=== PATIENT | female | born 1970 | race Caucasian/White ===

== ENCOUNTER 2018-11-29 23:58 | Inpatient (IN) | payer OTHER ==
[~2018-11-29] VITALS: Ht 157.5 cm; Wt 54.5 kg
[2018-11-30 01:36] VITALS: BP 133/77
[2018-11-30] MEDS ORDERED: oxyCODONE/APAP 5/325 1 TAB TABLET PO PRN (02:30)
--- NOTE | 2018-11-30 02:42 | NUR ---
Patient transfer from [facility], arrived on unit at 0130. VS stable, assessment complete, call light with in reach. Orders received. Will continue to monitor pt.
[2018-11-30 03:45] VITALS: BP 116/69
[2018-11-30 04:45] LABS: PROTHROMBIN TIME PATIENT 12.8 SEC (11.7-14.0)
[2018-11-30 05:13] LABS: ALBUMIN/GLOBULIN RATIO 0.9 (1.0-1.7); CALCIUM 8.5 mg/dL (8.5-10.1); CREATININE 0.5 mg/dL (0.6-1.0); GFR 131.1; POTASSIUM 3.6 mmol/L (3.5-5.1); TOTAL BILIRUBIN 0.6 mg/dL (0.2-1.0); TOTAL PROTEIN 6.3 g/dL (6.4-8.2)
[2018-11-30 07:16] VITALS: BP 123/69
--- NOTE | 2018-11-30 09:29 | RAD ---
Neck for soft tissues, 2 views, 11/30/2017: HISTORY: Left-sided neck mass Surgical clips are present in the neck on the left compatible with the history of previous carotid surgery. No prevertebral soft tissue swelling is seen. The epiglottis is unremarkable. Cartilaginous calcifications are present in the laryngeal region. No significant airway narrowing is seen. IMPRESSION: 1. Postsurgical change on the left. 2. No acute abnormality is detected. Electronically signed by: Diony Mark MD (11/30/2018 9:26 AM) [facility]
--- NOTE | 2018-11-30 09:44 | NUR ---
SS following for discharge planning. SS reviewed pt chart. Pt is from home with spouse and is currently on room air. No discharge needs noted at this time. SS will continue to follow for discharge planning.
[2018-11-30] MEDS ORDERED: GADOBUTROL 7.5 MMOL/7.5 ML VIAL IV ONE (09:45)
[2018-11-30 10:46] VITALS: BP 111/71
--- NOTE | 2018-11-30 11:03 | RAD ---
MRI neck with and without contrast November 30, 2018 INDICATION: Left neck mass. COMPARISON: CT neck soft tissues November 29, 2018 TECHNIQUE: Multiplanar, multisequence MR imaging of the neck was performed before and after the administration of 5 mL gadolinium based contrast. FINDINGS: There is a T1 hypointense, T2 mixed hyper and hypointense transspatial mass involving the left neck. The mass involves the left suprazygomatic technology development intern space, left parotid space, left external auditory canal posterior auricular region. There are numerous vessels coursing through the mass with more increased vascularity along the inferior aspect of the mass. The left common carotid artery is normal in course and caliber. There is venous ectasia at the left skull base with soft tissue mass resulting in mass effect on the carotid space. There suggestion of involvement of the left nasopharynx. There is diffuse enhancement within the mass. Visualized orbits are normal. Paranasal sinuses are well aerated. There is mass effect on the left parapharyngeal fat is no mass. There is no definite intraosseous involvement. No extension to the visualized brain parenchyma. Cervical spine is normal in appearance. Oropharynx, hypopharynx and laryngeal structures are intact. No pathologically enlarged cervical lymphadenopathy is identified. IMPRESSION: Left neck trauma space a mass is identified, as described in detail above. It is difficult to distinctly assess the margins of the mass is extending to involve the left external auditory canal as well as the left nasopharynx. Primary differential considerations would include neurofibroma versus hemangioma. There may be postsurgical changes involving the left external auditory canal with associated edema and scarring. Correlate with surgical history. Electronically signed by: Melissa Farah MD (11/30/2018 11:00 AM) [id number]
--- NOTE | 2018-11-30 13:11 | PDOC ---
Provider Note Provider Note Vascular Consult dictated Pt. well known to Dr. Boateng Lt neck mass with MRI showing considerable vascularity Pt. states mass varies in siz, larger last night after a shower, smaller today.no pain or trouble swallowing or breathing Exam Soft mass under prior incision Plan: OK to discharge, pt. to see Dr. Boateng in ~ 2 weeks in office MEREDITH DIAS MD Nov 30, 2018 13:11
--- NOTE | 2018-11-30 14:00 | HP ---
ADMIT DATE: 11/30/2018 HISTORY OF PRESENT ILLNESS: The patient is a 48-year-old female patient who apparently presented to [facility] Emergency Room with a complaint of a mass that developed yesterday and that started on the left side of her neck at work, but got larger after work and after shower, it seemed to get better, but it is on the same side that she had ear surgery and carotid aneurysm repair. The mass was at the left angle of the mandible and carotid area. The size approximately 8 x 8 cm, left carotid pulse is easily felt below the mass, not felt in the mass itself. There is no tenderness. She has two surgeries done at [facility] in 04/17/2010 and 08/08/2010 at [facility], and the patient basically denied any fall or trauma. The patient is known to have neurofibromatosis. PAST MEDICAL HISTORY: Significant for neurofibromatosis and bilateral sensorineural deafness. Denied any other medical problems, in particular denied any hypertension. PAST SURGICAL HISTORY: Significant for left carotid endarterectomy, appendectomy and left ear implantation done twice last year at [facility] in [place]. ALLERGIES: SHE IS ALLERGIC TO PENICILLIN AND TOBRAMYCIN. MEDICATIONS: She is currently on no medication. FAMILY HISTORY: She has no full brother or sister. Her father at age of 45-46 due to motor vehicle accident. SOCIAL HISTORY: She is , has 1 daughter. She never smoked. Drinks alcohol occasionally. She teaches in preschool. REVIEW OF SYSTEMS: The patient denied any blurring of vision, cataract, glaucoma or macular degeneration. Denied any earache. She has bilateral sensorineural deafness, more on the right than left. Denied any nosebleeds, stuffy nose or postnasal drip. Denied any sore throat, sore tongue, toothache, hoarseness of voice or difficulty swallowing. Denied any nausea, vomiting, diarrhea or constipation. Denied any hematemesis, melena or hematochezia. Denied any dysuria, frequency or hematuria. Denied any dysuria, frequency, hematuria. Denied any chest pain, shortness of breath, orthopnea or paroxysmal nocturnal dyspnea. Denied any cough, phlegm or hemoptysis. Denied any dizziness, lightheadedness or vertigo. Denied any lateralizing sign. In particular, denied any tingling, numbness or weakness in the right side. Denied any problem with swallowing. She is able to communicate without any difficulty. She was evaluated at [facility] Emergency Room. PHYSICAL EXAMINATION: VITAL SIGNS: On arrival there, her heart rate was 91, blood pressure was 133/77, temperature was 98.3, respiratory rate was 19 and oxygen saturation was 99% on room air. LABORATORY DATA: She had an EKG, which showed that she was in sinus rhythm at 77 beats per minute with no evidence of ST segment elevation or depression. She apparently has had lab work there, which showed that her white cell count was 8800, hemoglobin 14, hematocrit 41, MCV 88 and platelet count of 192,000, with normal manual differential. Her prothrombin time was 9.9, INR of 1, aPTT was 25. D-dimer was 0.28. Her serum sodium was 132, potassium 4, chloride 99, bicarbonate 27, anion gap of 6, BUN was 11, creatinine 0.6. Total protein was 6.6, albumin 3.5, calcium was 9.2. Her total bilirubin, AST, ALT, alkaline phosphatase were all normal. 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 The common carotid artery is widely patent throughout the bilateral. External carotid arteries are widely patent. The extracranial right internal carotid artery is also patent, normal in caliber throughout. 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 The bilateral intracranial internal carotid arteries are widely patent, although the left cavernous and clinoid segment of the left internal carotid artery mild aneurysmal measuring up to 5 mm proximally, measuring approximately 2.5 mm. The anterior cerebral arteries are well visualized and without evidence of stenosis or occlusion. The middle cerebral arteries are well visualized and without evidence of stenosis or occlusion. The posterior cerebral arteries are well visualized and without evidence of stenosis or occlusion. The vertebrobasilar system is normal with no evidence stenosis or occlusion. Postsurgical changes are seen within the left temporal region with associated deformity of the left mastoid air cells and left auditory canal immediately overlying this post-surgical changes, extending inferiorly in the region. Diffuse soft tissue thickening measuring approximately 7.2 x 3.9 x 2.5 cm, associated internal vascularity is seen, margin. Vascular malformation is not excluded, alternative other soft tissue masses, postsurgical changes, similar appearance of note. Compared to prior CT head, this is more prominent. The prominent previously seen soft tissue enhancement in the subcutaneous left frontoparietal lesion is not definitely seen on today's examination. 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 She has large soft tissue prominence overlying the left head and neck with some prominent internal visits, possibly vascular malformation, although post-surgical changes or other soft tissue mass may have similar appearance. Recommend comparison to additional prior imaging if available to assess stability. The patient was transferred to [facility]. We will consult the vascular surgeon to assist with management of this patient. She seems to be so far stable and with no evidence of any neurological deficit. SVETLANA CURTIS MD DR: FIONA/chloe JOB#: [id number] / [id number]
[2018-11-30 14:42] VITALS: BP 107/44
--- NOTE | 2018-11-30 16:00 | NUR ---
Pt discharged home with self care and instructions to follow up with in 2 weeks per Bijal Gordilol. Pt walked out with and staff member.
--- NOTE | 2018-11-30 22:29 | DS ---
DATE OF DISCHARGE: 11/30/2018 HISTORY OF PRESENT ILLNESS: The patient is a 48-year-old female patient who came to the Emergency Room of [facility] with a complaint of a mass that developed yesterday that started in the left side of her neck at work, but it got larger after the work and after the shower, it seemed to get better, but is on the same side that she has had her ear surgery and carotid aneurysm repair. The mass was at the left angle of the mandible and carotid area. There is no tenderness and no obvious discoloration. The patient has had her ear surgery at [facility] last year and has had her carotid aneurysm rupture in 2004 treated surgically. The patient denied any complaint, in particular denied any blurring of vision, weakness, tingling or numbness or difficulty swallowing. She has had x-ray of the soft tissue of the neck, which basically showed that there are surgical clips present in the neck on the left compatible with a history of previous carotid surgery. No prevertebral soft tissue swelling is seen. The epiglottis was unremarkable. Cartilaginous calcification is present in the laryngeal area and significant airway narrowing is seen. 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 There are numerous vessels coursing through the mass with more increased vascularity along the inferior aspect of the mass. The left common carotid artery is normal in course and caliber. There is venous ectasia of the left skull base with soft tissue mass resulting in mass effect on the carotid space. There is suggestion of involvement of the left nasopharynx. There is diffuse enhancement within the mass; however, the visualized orbits are normal. Paranasal sinuses are well aerated. There is mass effect on the left parapharyngeal fat. There is no definite intraosseous involvement. No extension to the visualized brain parenchyma. Cervical spine is normal in appearance. Oropharynx, hypopharynx and laryngeal structures are intact. No pathologically enlarged cervical lymph nodes are identified and basically, the patient has left neck mass identified as described in detail, difficult to distinctly assess the margins of the mass and was extending to the left external auditory canal as well as the left nasopharynx. Primary differential consideration would include neurofibroma versus hemangioma. There may be postsurgical changes involving the left external auditory canal with associated edema and scarring. The patient was seen by the vascular surgeon and apparently, she is well known to Dr. Boateng and a decision was made to discharge her home to follow with Dr. Boateng in 2 weeks' time in his office. On discharging her, all her vital signs were stable. PHYSICAL EXAMINATION: Unremarkable except for the mass on the left side of her neck. FINAL DISCHARGE DIAGNOSIS: Mass with numerous vessel coursing through the mass with more increased vascularity along the inferior aspect of the mass. SVETLANA CURTIS MD DR: FIONA/chloe JOB#: [id number] / [id number]
--- NOTE | 2018-12-01 12:30 | CONS ---
DATE OF CONSULTATION: 11/30/2018 REQUESTING PHYSICIAN: Dr. Villa. REASON FOR CONSULTATION: Left neck mass. HISTORY OF PRESENT ILLNESS: This is a 48-year-old female well known to Dr. Boateng in our practice. 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 She also has known underlying neurofibromatosis. Because of an abnormality in the left ear, Dr. Boateng sent her to Plastic Surgery at the [facility] where that was corrected. Dr. Boateng last saw her in the office in September recently. She complains of this left neck mass, which varies in size. She thinks it gets larger after a hot shower and noted it to be very large last night, which is why she was admitted; however, this morning it is much smaller. She has no history of pain with this, has no trouble swallowing or breathing. A CT scan was done of the left neck and suggest some hypervascularity with numerous vessels coursing through the mass. The carotid artery was normal. There was also some venous ectasia. PHYSICAL EXAMINATION: GENERAL: She is a pleasant female, in no severe distress. NECK: The mass is soft. No tenderness. It is under her well-healed previous neck incision. She has got strong radial pulses bilaterally. CARDIOVASCULAR: Regular heart rate. LUNGS: Nonlabored respirations. 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 PLAN: The mass does not appear to be critical or of any emergence at the present time. She does have an appointment to see Dr. Boateng again in a couple of weeks. I do not think the mass is of severe enough nature to justify any type of surgery at the present time. Thanks for allowing us to see her. Dr. Boateng will follow up in a couple of weeks. MEREDITH DIAS MD DR: SHIRA/chloe JOB#: [id number] / [id number]
== END 2018-11-30 16:57 | disposition home or self-care (01) | DRG 607 ==
LOC: 2 NORTH 11-30 01:25
PROVIDERS: ADMIT Internal Medicine; ATTEND Internal Medicine
DX: R22.1 Localized swelling, mass and lump, neck (principal); Q85.00 Neurofibromatosis, unspecified; H90.5 Unspecified sensorineural hearing loss; Z90.49 Acquired absence of other specified parts of digestive tract; Z88.0 Allergy status to penicillin
CPT/HCPCS: 36415; 70360; 70543; 80053; 85610; A9585